=== PATIENT | male | born 1995 | race Caucasian/White ===

== ENCOUNTER 2018-03-22 01:34 | Observation (INO) | payer OTHER ==
[~2018-03-22] VITALS: Ht 182.9 cm; Wt 77.1 kg
[2018-03-22] MEDS ORDERED: LORAZEPAM 2 MG/ML 1 ML VIAL IM STA ×2 (01:38→02:54)
[2018-03-22] MEDS ORDERED: HALOPERIDOL LACTATE 5 MG/ML 1 ML VIAL IM STA (01:38)
--- NOTE | 2018-03-22 01:46 | EMERGENCY ROOM VISIT NOTE ---
History Report prepared by Emmanuel: Kim Mckenzie Under the Supervision of: Dr. Adonis Espinal M.D. First contact with patient: 01:34 Chief Complaint: ALCOHOL OVERDOSE Stated Complaint: ALCOHOL OVERDOSE History of Present Illness The patient is a 23 year old male who presents to the Emergency Room with complaints of an episode of alcohol overdose occurring prior to arrival. Per EMS , the patient was at [facility] and he was yelling at staff. They state that police were called and upon arrival he tried to fight them. EMS reports that when they arrived he was handcuffed and had blown a 260. HPI and ROS limited secondary to alcohol intoxication. Source of History: EMS History Limited By: intoxication Onset: prior to arrival Position: other (global) Quality: other (alcohol overdose) Timing: other (episode) Review of Systems HPI and ROS limited secondary to alcohol intoxication. Past Medical & Surgical Medical Problems: (1) No active medical problems Family History No pertinent family history Social History Alcohol Use: heavy Marital Status: single Housing Status: lives with roommate Occupation Status: [employer] student Current/Historical Medications No Active Prescriptions or Reported Meds Allergies Coded Allergies: Penicillins (Verified Allergy, Unknown, HIVES, 03/22/18) Physical Exam Vital Signs Date Time Temp Pulse Resp B/P (MAP) Pulse Ox O2 Delivery O2 Flow Rate FiO2 03/22/18 05:30 94/69 03/22/18 05:00 106/75 03/22/18 04:54 124 15 94 03/22/18 04:30 113/94 03/22/18 04:24 134 19 113/79 96 03/22/18 03:54 109 15 97 03/22/18 03:30 91/55 03/22/18 03:24 103 17 97 Nasal Cannula 3.0 03/22/18 03:22 101/59 03/22/18 03:17 101 18 101/59 96 Nasal Cannula 3.0 03/22/18 03:00 157/140 03/22/18 02:54 107 17 97 03/22/18 02:49 97 17 97 Nasal Cannula 3.0 03/22/18 02:34 118 18 94 Nasal Cannula 3.0 03/22/18 02:30 156/92 95 Nasal Cannula 3.0 03/22/18 02:20 94 Nasal Cannula 3.0 03/22/18 02:19 144 19 82 Room Air 03/22/18 02:04 127 19 91 Room Air 03/22/18 02:01 128 03/22/18 02:00 120/80 Room Air 03/22/18 01:57 174 03/22/18 01:47 151/124 03/22/18 01:35 37.1 170 20 151/124 96 Room Air Physical Exam GENERAL: Patient is heavily intoxicated. Smells of alcohol. Combative. Aggressive. Being held down by multiple security officers. Well appearing and in no acute distress. HEAD: No evidence of Trauma. AT/NC EYES: Injected conjunctiva. Normal EOM. Pupils equal/reactive. ENT: Mucous membranes moist, no nasal congestion. NECK: No step-offs, no adenopathy, no meningismus, trachea is midline. LUNGS: No dyspnea. Clear to auscultation and equal bilaterally. No wheeze, no rhonchi. HEART: Regular rate and rhythm. No murmurs, rubs, gallops appreciated. GI: Abdomen soft, nontender, no peritonitis. Bowel sounds positive. No masses appreciated. BACK: No midline tenderness, no stepoffs, no CVA tenderness EXTREMITIES: Normal motion all extremities, no cyanosis, no edema. NEUROLOGIC: Heavily intoxicated. Slurred speech. Aggressive. No acute motor or sensory deficits, no focal weakness, cranial nerves grossly intact. SKIN: No rash, no jaundice, no diaphoresis. Abrasion over the right fist without bruising. Medical Decision & Procedures ER Provider Diagnostic Interpretation: X ray results are stated below per my interpretation: Chest #1: Indication Hypoxia: 1 view: No infiltrate, no effusion, normal cardiac border. Mildly hypoinflated lungs. Chest #2: Indication Continued hypoxia, crackles lungs: 1 view: Interval development of haziness throughout right lung eldridge compared to CXR from 2 hours earlier Stat Rad Radiology results and stated below per my review and radiologist interpretation: CT HEAD: Motion artifact causes image degradation. No intracranial hemorrhage, extra- axial fluid, shift or mass effect. No evidence for cortical infarct. No evidence for displaced skull fracture. Paranasal sinuses and mastoid air cells unremarkable. Radiologist: Pavan Contreras MD Laboratory Results 03/22/18 02:00 Red Blood Count 5.48, Mean Corpuscular Volume 87.8, Mean Corpuscular Hemoglobin 30.5, Mean Corpuscular Hemoglobin Concent 34.7, Mean Platelet Volume 9.3, Neutrophils (%) (Auto) 54.2, Lymphocytes (%) (Auto) 39.7, Monocytes (%) (Auto) 4.6, Eosinophils (%) (Auto) 0.4, Basophils (%) (Auto) 0.7, Neutrophils # (Auto) 6.54, Lymphocytes # (Auto) 4.80, Monocytes # (Auto) 0.56, Eosinophils # (Auto) 0.05, Basophils # (Auto) 0.09 03/22/18 01:45 Test 03/22/18 01:45 03/22/18 02:00 03/22/18 02:23 Anion Gap 13.0 mmol/L (3-11) Estimated GFR () 114.4 Estimated GFR (Non- 98.7 BUN/Creatinine Ratio 9.7 (10-20) Calcium Level 8.3 mg/dl (8.5-10.1) Total Bilirubin 0.3 mg/dl (0.2-1) Direct Bilirubin mg/dl (0-0.2) Aspartate Amino Transf (AST/SGOT) 35 U/L (15-37) Alanine Aminotransferase (ALT/SGPT) 31 U/L (12-78) Alkaline Phosphatase 86 U/L (45-117) Total Creatine Kinase 335 U/L (39-308) Troponin I < 0.015 ng/ml (0-0.045) Total Protein 8.2 gm/dl (6.4-8.2) Albumin 4.1 gm/dl (3.4-5.0) Ethyl Alcohol mg/dL 368.0 mg/dl (0-3) White Blood Count 12.09 K/uL (4.8-10.8) Red Blood Count 5.48 M/uL (4.7-6.1) Hemoglobin 16.7 g/dL (14.0-18.0) Hematocrit 48.1 % (42-52) Mean Corpuscular Volume 87.8 fL (80-100) Mean Corpuscular Hemoglobin 30.5 pg (25-34) Mean Corpuscular Hemoglobin Concent 34.7 g/dl (32-36) Platelet Count 428 K/uL (130-400) Mean Platelet Volume 9.3 fL (7.4-10.4) Neutrophils (%) (Auto) 54.2 % Lymphocytes (%) (Auto) 39.7 % Monocytes (%) (Auto) 4.6 % Eosinophils (%) (Auto) 0.4 % Basophils (%) (Auto) 0.7 % Neutrophils # (Auto) 6.54 K/uL (1.4-6.5) Lymphocytes # (Auto) 4.80 K/uL (1.2-3.4) Monocytes # (Auto) 0.56 K/uL (0.11-0.59) Eosinophils # (Auto) 0.05 K/uL (0-0.5) Basophils # (Auto) 0.09 K/uL (0-0.2) RDW Standard Deviation 40.6 fL (36.4-46.3) RDW Coefficient of Variation 12.7 % (11.5-14.5) Immature Granulocyte % (Auto) 0.4 % Immature Granulocyte # (Auto) 0.05 K/uL (0.00-0.02) Urine Color YELLOW Urine Appearance CLEAR (CLEAR) Urine pH 6.0 (4.5-7.5) Urine Specific [place] 1.010 (1.000-1.030) Urine Protein NEG (NEG) Urine Glucose (UA) NEG (NEG) Urine Ketones NEG (NEG) Urine Occult Blood TRACE (NEG) Urine Nitrite NEG (NEG) Urine Bilirubin NEG (NEG) Urine Urobilinogen NEG (NEG) Urine Leukocyte Esterase NEG (NEG) Urine WBC (Auto) 0 /hpf (0-5) Urine RBC (Auto) 0-4 /hpf (0-4) Urine Hyaline Casts (Auto) 0 /lpf (0-5) Urine Epithelial Cells (Auto) 0-5 /lpf (0-5) Urine Bacteria (Auto) NEG (NEG) Urine Opiates Screen NEG (NEG) Urine Methadone, Qualitative NEG (NEG) Urine Barbiturates NEG (NEG) Urine Phencyclidine (PCP) Level NEG (NEG) Ur Amphetamine/Methamphetamine NEG (NEG) MDMA (Ecstasy) Screen NEG (NEG) Urine Benzodiazepines Screen NEG (NEG) Urine Cocaine Metabolite NEG (NEG) Urine Marijuana (THC) POS (NEG) Laboratory results as reviewed by me. Medications Administered Medications (Trade) Dose Ordered Sig/Criss Route Start Time Stop Time Status Last Admin Dose Admin Haloperidol Lactate (Haldol Inj) 5 mg NOW STAT IM 03/22/18 01:38 5/9/18 01:40 DC 03/22/18 01:38 5 MG Lorazepam (Ativan Inj) 2 mg NOW STAT IM 03/22/18 01:38 03/22/18 01:40 DC 03/22/18 01:38 2 MG Sodium Chloride 2,000 ml @ 999 mls/hr Q2H1M STAT IV 03/22/18 01:54 03/22/18 03:54 DC 03/22/18 01:54 999 MLS/HR Miscellaneous Information (Nursing Verbal Med Order) 1 ea ONE ONCE N/A 03/22/18 01:50 03/22/18 02:55 DC 03/22/18 01:50 1 EA Diphenhydramine HCl (Benadryl Inj) 50 mg STK-MED ONCE .ROUTE 03/22/18 04:42 03/22/18 04:43 DC 03/22/18 04:44 50 MG Lorazepam (Ativan Inj) 2 mg NOW STAT IV 03/22/18 05:07 03/22/18 05:09 DC 03/22/18 04:46 2 MG ECG Per My Interpretation Indication: toxicologic Rate (beats per minute): 127 Rhythm: sinus tachycardia Findings: RBBB, ST depression (nonspecific), no ectopy ED Course 0134: The patient was evaluated in room B12B. A complete history and physical exam was performed. 0138: Ordered Ativan Inj 2 mg IM, Haldol Inj 5 mg IM. 0145: I reevaluated the patient. He is mumbling about taking drugs, but will not say what. He received a total of 10 Haldol and 4 Ativan. Again he is violently fighting restraints with a heart rate of 170. I request nurses place an IV, start fluids, and obtain further labs. 0154: Ordered NSS 2000 ml @ 999 mls/hr IV, Ativan Inj 2 mg IV. 0157: I reevaluated the patient and he is no calming down. Nursing is obtaining an EKG. 0254: Ordered Ativan Inj 2 mg IM. 0404: I reevaluated the patient and he is sound asleep. 0436: Nursing reports that he seemed toe be more tachypneic, tachycardic, and uncomfortable. On evaluation, patient urinated all over himself and now is no loner in any distress. Mild crackles on lung exam so repeat chest x-ray ordered. 0440: I reevaluated the patient and he is now having full tremors and twitching of all muscles. He appears to be shaking violently. Ativan and Benadryl ordered. 0442: Ordered Benadryl Inj 50 mg IV. 0507: Ordered Ativan Inj 2 mg IV. 0507: I reevaluated the patient and he is sleeping. He is no longer tachycardic. 0604: Discussed the patient's case with Dr. Garza [facility] Hospitalist. The patient will be evaluated for further treatment and disposition. Medical Decision Differential: Alcohol Intoxication, Drug Intoxication, Electrolyte Abnormality, Trauma, Intracranial Event, Toxicological, Excited Delirium, Serotonin Syndrome , amongst other pathologies entertained. 22 yr old intoxicated male brought in by EMS after being belligerent at local restaurant. Patient with no evidence nor history for trauma. He arrives severely belligerent and aggressive to staff and myself. I was unable to verbally deescalate nor re-direct the patient. The patient's combative behavior was risking a catastrophe. To protect the staff and the patient from harm it was necessary to chemically and physically restrain the patient. This required repeat dosing of haldol and ativan. An EKG done revealed no prolonged qtc and did have tachycardia. EtOH positive. Given IV fluids as mild CK elevation on arrival and after how aggressive he had been I felt fluids would be necessary. Moderate hypoxia likely sedation related thus requiring NC O2. CXR done given hypoxia which initially was mostly just hypoinflated. Monitored and had episode increased agitation again which resolved after he urinated, however shortly thereafter become very agitated with arching of back and twisting of head to the side. Very much looked to be dystonic related but given increased HR, agitation I felt that imaging would be required. Given Benadryl and Ativan with resolution of symptoms. This did not appear to be seizure like. He was not hypoxic with this. HR was quite elevated during it. He looks well after this and is sleeping soundly. CT head appears negative other than some movement. He did have a repeat CXR done prior to CT Head which reveals some increased congestion throughout right lung which I suspect is aspiration, though i would note he was not vomiting while here. Given significant Etoh level, haziness right lung on cxr, requirement of multiple sedative medications and his persistent hypoxia requiring NC O2, I felt that he will benefit from hospitalist management/monitoring. I did not feel that patient requiring intubate as by exam on multiple occasions he is maintaining airways and does not appear to be aspirating nor vomiting. Head Trauma GCS Score: 9 Medication Reconcilliation Current Medication List: was personally reviewed by me Blood Pressure Screening Patient's blood pressure: Normal blood pressure Will be further monitored by the hospitalist. Consults Time Called: 05 Consulting Physician: Dr. Greg KC Hospitalist Returned Call: 06 Discussed the patient's case with Dr. Greg KC Hospitalist. The patient will be evaluated for further treatment and disposition. Impression Primary Impression: Alcohol abuse Additional Impressions: Combative behavior Alcohol intoxication Aspiration into respiratory tract Dystonic drug reaction Critical Care I have personally spent greater than 45 minutes of critical care time in the direct management of this patient. This was a life/limb threatening event. This includes time spent evaluating patient, direct bedside care, chart review, placing orders, interpretation of diagnostic studies, discussion with consultants, patient, and family members, as well as other required patient management activities. This 45 minutes is in excess of all separately billable procedures. Scribe Attestation The scribe's documentation has been prepared under my direction and personally reviewed by me in its entirety. I confirm that the note above accurately reflects all work, treatment, procedures, and medical decision making performed by me. Departure Information Dispostion Being Evaluated By Hospitalist Prescriptions No Active Prescriptions or Reported Meds Patient Instructions My [facility] Problem Qualifiers
[2018-03-22] MEDS ORDERED: NURSING VERBAL MED ORDER ONE ×2 (01:50→05:15)
[2018-03-22] MEDS ORDERED: SODIUM CHLORIDE 0.9% 1000ML 2,000 ML IV STA (01:54)
[2018-03-22] MEDS ORDERED: LORAZEPAM 2 MG/ML 1 ML VIAL IV STA ×2 (01:54→05:07)
[2018-03-22 02:08] LABS: BASO % 0.7 %; BASO ABS # 0.09 K/uL (0-0.2); EOS % 0.4 %; EOS ABS # 0.05 K/uL (0-0.5); HEMATOCRIT 48.1 % (42-52); HEMOGLOBIN 16.7 g/dL (14.0-18.0); IG# 0.05 K/uL (0.00-0.02); LYMPH % 39.7 %; MEAN CELL VOLUME 87.8 fL (80-100); MEAN CORPUSCULAR HEMOGLOBIN 30.5 pg (25-34); MEAN CORPUSCULAR HGB CONC 34.7 g/dl (32-36); MEAN PLATELET VOLUME 9.3 fL (7.4-10.4); MONO % 4.6 %; MONO ABS # 0.56 K/uL (0.11-0.59); NEUT % 54.2 %; NEUT ABS # 6.54 K/uL (1.4-6.5); PLATELET COUNT 428 K/uL (130-400); RED CELL DISTRIBUTION WIDTH CV 12.7 % (11.5-14.5); RED CELL DISTRIBUTION WIDTH SD 40.6 fL (36.4-46.3); WHITE BLOOD COUNT 12.09 K/uL (4.8-10.8)
[2018-03-22 02:25] LABS: ALBUMIN 4.1 gm/dl (3.4-5.0); ALKALINE PHOSPHATASE 86 U/L (45-117); ALT/SGPT 31 U/L (12-78); BLOOD UREA NITROGEN 10 mg/dl (7-18); CALCIUM 8.3 mg/dl (8.5-10.1); CARBON DIOXIDE 26 mmol/L (21-32); CREATININE 1.07 mg/dl (0.60-1.40); GLUCOSE 102 mg/dl (70-99); TOTAL PROTEIN 8.2 gm/dl (6.4-8.2)
[2018-03-22 02:47] LABS: POTASSIUM 3.4 mmol/L (3.5-5.1); SODIUM 146 mmol/L (136-145)
[2018-03-22 02:50] LABS: AST/SGOT 35 U/L (15-37)
[2018-03-22] MEDS: DiphenhydrAMINE HCL 50 MG/ML VIAL ONE ×2 (04:42→04:44)
[2018-03-22] MEDS ORDERED: ACETAMINOPHEN 325 MG TAB PO PRN (06:30)
[2018-03-22] MEDS ORDERED: LORAZEPAM 2 MG/ML 1 ML VIAL IV PRN (06:30)
[2018-03-22] MEDS ORDERED: ONDANSETRON INJ 2 MG/ML 2 ML VIAL IV PRN (06:30)
--- NOTE | 2018-03-22 06:35 | DIAGNOSTIC IMAGING REPORT ---
CHEST ONE VIEW PORTABLE CLINICAL HISTORY: severely combative, etoh, hypoxia COMPARISON STUDY: No previous studies for comparison. FINDINGS: The bones soft tissues and hemidiaphragms are normal. The cardiomediastinal silhouette is normal. The lungs are clear. The pulmonary vasculature is normal. IMPRESSION: Negative chest. The above report was generated using voice recognition software. It may contain grammatical, syntax or spelling errors. Electronically signed by: Eliot Ren M.D. 03/22/2018 6:34 AM Dictated Date/Time: 03/22/2018 6:30 AM
--- NOTE | 2018-03-22 06:37 | DIAGNOSTIC IMAGING REPORT ---
CHEST ONE VIEW PORTABLE CLINICAL HISTORY: worsening SHOB dyspnea COMPARISON STUDY: 03/22/2000 18-20 8:00 AM. FINDINGS: Somewhat progressive increase in density over the right upper lung. Overlap artifact versus upper lobe atelectatic change is considered. Lungs otherwise are clear. Diaphragms are smooth. IMPRESSION: Increased density overlying the right upper lung suggesting either artifact due to overlying soft tissue versus developing upper lobe atelectatic/infiltrative change. The above report was generated using voice recognition software. It may contain grammatical, syntax or spelling errors. Electronically signed by: Eliot Ren M.D. 03/22/2018 6:36 AM Dictated Date/Time: 03/22/2018 6:35 AM
--- NOTE | 2018-03-22 06:41 | DIAGNOSTIC IMAGING REPORT ---
HEAD WITHOUT CONTRAST (CT) CT DOSE: 1247.19 mGy.cm HISTORY: Mental status change AMS, seizure like activity TECHNIQUE: Multiaxial CT images of the head were performed without the use of intravenous contrast. A dose lowering technique was utilized adhering to the principles of ALARA. Comparison: None. Findings: The paranasal sinuses and mastoid air cells are clear. The calvarium and skull base are intact. The ventricles and sulci are within normal limits. There is no mass, hematoma, midline shift, or acute infarct. Impression: No acute intracranial abnormality. The above report was generated using voice recognition software. It may contain grammatical, syntax or spelling errors. Electronically signed by: Eliot Ren M.D. 03/22/2018 6:40 AM Dictated Date/Time: 03/22/2018 6:39 AM
[2018-03-22] MEDS ORDERED: IV FLUIDS COMPLETED PRN (06:45)
--- NOTE | 2018-03-22 06:48 | History and Physical ---
History & Physical Date & Time of Service: March 22, 2018 at 06:33 Chief Complaint: Alcohol Overdose Primary Care Physician: No Doctor, Assigned History of Present Illness Patient is a 22yo C male brought in for EtOH intoxication and belligerance. He was at [facility] and was visibly intoxicted and yelling at the staff. While in ER he was found to be acutely agitated. He was administered Ativan 2mg x 4 doses and Haldol 5mg x 2 doses which was adequate sedation. Patient had an brief episode of muscle rigidity and spasm that resolved with IV Benadryl. Concern for aspiration event as patient became visibly more SOB with decrease in O2 saturation. CT head performed which was negative. Repeat CXR performed which revealed increased markings on the right side when compared to prior, concern for aspiration event. Patient somnolent and unresponsive during encounter. Patient did not follow commands or provide verbal answers. ER Course: Ativan 2mg x 4 doses, Haldol 5mg x 2 doses, NSS x 2 liters, Benadryl 50mg IV Past Medical/Surgical History Medical Problems: No active medical problems Past Surgical: Unable to obtain due to patient mental state No evidence of prior surgeries, no scarring Family History No pertinent family history Social History Unable to obtain due to patient mental status Smoking Status: Unknown if Ever Smoked Marital Status: single Occupational Status: [employer] student Allergies Coded Allergies: Penicillins (Verified Allergy, Unknown, HIVES, 03/22/18) Home Medications No Active Prescriptions or Reported Meds Review of Systems Unable to obtain Physical Exam Vital Signs Date Time Temp Pulse Resp B/P (MAP) Pulse Ox O2 Delivery O2 Flow Rate FiO2 03/22/18 06:17 103 03/22/18 06:05 101 17 93 03/22/18 06:04 98/50 03/22/18 05:35 102 18 98 03/22/18 05:30 94/69 03/22/18 05:00 106/75 03/22/18 04:54 124 15 94 03/22/18 04:30 113/94 03/22/18 04:24 134 19 113/79 96 03/22/18 03:54 109 15 97 03/22/18 03:30 91/55 03/22/18 03:24 103 17 97 Nasal Cannula 3.0 03/22/18 03:22 101/59 03/22/18 03:17 101 18 101/59 96 Nasal Cannula 3.0 03/22/18 03:00 157/140 03/22/18 02:54 107 17 97 03/22/18 02:49 97 17 97 Nasal Cannula 3.0 03/22/18 02:34 118 18 94 Nasal Cannula 3.0 03/22/18 02:30 156/92 95 Nasal Cannula 3.0 03/22/18 02:20 94 Nasal Cannula 3.0 03/22/18 02:19 144 19 82 Room Air 03/22/18 02:04 127 19 91 Room Air 03/22/18 02:01 128 03/22/18 02:00 120/80 Room Air 03/22/18 01:57 174 03/22/18 01:47 151/124 03/22/18 01:35 37.1 170 20 151/124 96 Room Air General: sedated, nontoxic in appearance, resting comfortably on left side, NAD Skin: warm, dry, intact, no rashes or lesions HEENT: NC/AT, pupils small and reactive, anicteric sclera, MMM, dentition intact, neck supple, trachea midline Heart: +S1/S2, regular, no m/r/g Lungs: equal air entry bilaterally, mild crackles on right base with end- inspiration, poor effort, no rhonchi/wheezing, no respiratory distress, adequate SaO2 on 2L NC Abdomen: soft, NT/ND, no masses Extremities: warm, well perfused, no clubbing/cyanosis or edema, palpable pulses Neuro: patient sedated, pupils small, round and reactive bilaterally, normal muscle bulk and tone with no spasm/rigidity, patient moving 4 extremities with 5 + strength prior to medication administration, no neuro deficits Diagnostics Laboratory Results Results Past 24 Hours Test 03/22/18 01:45 03/22/18 02:00 03/22/18 02:23 Range/Units Sodium Level 146 136-145 mmol/L Potassium Level 3.4 3.5-5.1 mmol/L Chloride Level 107 98-107 mmol/L Carbon Dioxide Level 26 21-32 mmol/L Anion Gap 13.0 3-11 mmol/L Blood Urea Nitrogen 10 7-18 mg/dl Creatinine 1.07 0.60-1.40 mg/dl Estimated GFR () 114.4 Estimated GFR (Non- 98.7 BUN/Creatinine Ratio 9.7 10-20 Random Glucose 102 70-99 mg/dl Calcium Level 8.3 8.5-10.1 mg/dl Total Bilirubin 0.3 0.2-1 mg/dl Direct Bilirubin 0-0.2 mg/dl Aspartate Amino Transf (AST/SGOT) 35 15-37 U/L Alanine Aminotransferase (ALT/SGPT) 31 12-78 U/L Alkaline Phosphatase 86 45-117 U/L Total Creatine Kinase 335 39-308 U/L Troponin I < 0.015 0-0.045 ng/ml Total Protein 8.2 6.4-8.2 gm/dl Albumin 4.1 3.4-5.0 gm/dl Ethyl Alcohol mg/dL 368.0 0-3 mg/dl White Blood Count 12.09 4.8-10.8 K/uL Red Blood Count 5.48 4.7-6.1 M/uL Hemoglobin 16.7 14.0-18.0 g/dL Hematocrit 48.1 42-52 % Mean Corpuscular Volume 87.8 80-100 fL Mean Corpuscular Hemoglobin 30.5 25-34 pg Mean Corpuscular Hemoglobin Concent 34.7 32-36 g/dl Platelet Count 428 130-400 K/uL Mean Platelet Volume 9.3 7.4-10.4 fL Neutrophils (%) (Auto) 54.2 % Lymphocytes (%) (Auto) 39.7 % Monocytes (%) (Auto) 4.6 % Eosinophils (%) (Auto) 0.4 % Basophils (%) (Auto) 0.7 % Neutrophils # (Auto) 6.54 1.4-6.5 K/uL Lymphocytes # (Auto) 4.80 1.2-3.4 K/uL Monocytes # (Auto) 0.56 0.11-0.59 K/uL Eosinophils # (Auto) 0.05 0-0.5 K/uL Basophils # (Auto) 0.09 0-0.2 K/uL RDW Standard Deviation 40.6 36.4-46.3 fL RDW Coefficient of Variation 12.7 11.5-14.5 % Immature Granulocyte % (Auto) 0.4 % Immature Granulocyte # (Auto) 0.05 0.00-0.02 K/uL Urine Color YELLOW Urine Appearance CLEAR CLEAR Urine pH 6.0 4.5-7.5 Urine Specific [place] 1.010 1.000-1.030 Urine Protein NEG NEG Urine Glucose (UA) NEG NEG Urine Ketones NEG NEG Urine Occult Blood TRACE NEG Urine Nitrite NEG NEG Urine Bilirubin NEG NEG Urine Urobilinogen NEG NEG Urine Leukocyte Esterase NEG NEG Urine WBC (Auto) 0 0-5 /hpf Urine RBC (Auto) 0-4 0-4 /hpf Urine Hyaline Casts (Auto) 0 0-5 /lpf Urine Epithelial Cells (Auto) 0-5 0-5 /lpf Urine Bacteria (Auto) NEG NEG Urine Opiates Screen NEG NEG Urine Methadone, Qualitative NEG NEG Urine Barbiturates NEG NEG Urine Phencyclidine (PCP) Level NEG NEG Ur Amphetamine/Methamphetamine NEG NEG MDMA (Ecstasy) Screen NEG NEG Urine Benzodiazepines Screen NEG NEG Urine Cocaine Metabolite NEG NEG Urine Marijuana (THC) POS NEG Diagnostic Radiology Awaiting formal reads. CT Head - appears negative for acute intracranial process CXR - initial CXR appears normal, repeat CXR with mildly increased interstitial markings on the right side Impression Assessment and Plan 22yo C male with EtOH intoxication, possible aspiration event 1. EtOH intoxication -patient well sedated at present after receiving Ativan and Haldol in ER. He is breathing on his own, protecting his airway, no respiratory depression -Continue to monitor -NSS = 40mEq KCL at 100mL/hr -Zofran PRN nausea -Ativan PRN agitation -Seizure precautions -Aspiration precautions -Place patient near nurses' station - may need 1:1 -Check Tylenol level -Monitor for additional seizure like activity vs dystonic reaction. IV Benadryl if needed -Check EKG to assess underlying rhythm and QT interval 2. Possible aspiration event - patient presently with adequate oxygenation on room air, no respiratory distress -Continuous pulse oximetry -Aspiration precautions -NPO until mental status improves -Will hold antibiotics for now - consider Zosyn if patient becomes febrile or clinically worsens 3. Gapped metabolic acidosis - Anion gap=13. Etiology unclear. Most likely secondary to intoxication -Check lactate -Check VBG -Repeat BMP at 1500 4. Leukocytosis - most likely reactive. No evidence of underlying infection. -Repeat CBC at 1500 -If patient had a true aspiration event may see further elevation in WBC on repeat due to pneumonitis 5. F/E/N - NSS +KCL 40mEQ x 1 liter, K=3.4, will replete and repeat labs at 1500, check Mg and PO4 x 1 and replete as needed, NPO 6. Ppx - early ambulation and IVF 7. Code - Full 8. Dispo - Observation Med-telemetry Resuscitation Status Full VTE Prophylaxis Will order VTE Prophylaxis: No Reason for no VTE drug order: Treatment not indicated Reason no Mechanical VTE Order: Treatment not indicated
[2018-03-22 08:10] VITALS: BP 121/68; PULSE 87; TEMP 36.2; O2SAT 98; Ht 182.9 cm; Wt 77.1 kg
[2018-03-22] MEDS ORDERED: POTASSIUM CHLORIDE INJ 40 MEQ in SODIUM CHLORIDE 0.9% 1000ML 1,000 ML IV SCH (08:30)
[2018-03-22 11:45] VITALS: BP 132/76; PULSE 89; TEMP 36.4; O2SAT 100
[2018-03-22 12:00] VITALS: O2SAT 100
[2018-03-22 13:02] LABS: HEMATOCRIT 41.6 % (42-52); HEMOGLOBIN 14.5 g/dL (14.0-18.0); MEAN CELL VOLUME 86.7 fL (80-100); MEAN CORPUSCULAR HEMOGLOBIN 30.2 pg (25-34); MEAN CORPUSCULAR HGB CONC 34.9 g/dl (32-36); MEAN PLATELET VOLUME 9.3 fL (7.4-10.4); PLATELET COUNT 311 K/uL (130-400); RED CELL DISTRIBUTION WIDTH CV 12.9 % (11.5-14.5); RED CELL DISTRIBUTION WIDTH SD 41.3 fL (36.4-46.3); WHITE BLOOD COUNT 9.37 K/uL (4.8-10.8)
[2018-03-22 13:49] LABS: CALCIUM 8.2 mg/dl (8.5-10.1); CREATININE 0.8 mg/dl (0.60-1.40); POTASSIUM 3.9 mmol/L (3.5-5.1)
--- NOTE | 2018-03-22 15:22 | Discharge Instructions ---
Discharge Instructions Date of Service March 22, 2018. Admission Reason for Admission: Aspiration Into Respiratry Tract Discharge Discharge Diagnosis / Problem: Alcohol overdose, aspiration Discharge Goals Goal(s): Improve disease control Activity Recommendations Activity Limitations: resume your previous activity . Instructions / Follow-Up Instructions / Follow-Up If you become feverish, or develop aches and chills or a cough, please see your doctor immediately. You are at risk for developing pneumonia because you likely aspirated some stomach contents earlier in your admission. I strongly encourage you to re-examine your relationship with alcohol. Regularly binge drinking is dangerous and can have a serious effect on your health. Please discuss with your primary care provider and if you feel that you are unable to cut back on drinking, please look into support services such as Alcoholics Anonymous. Do not drive today. Current Hospital Diet Patient's current hospital diet: Regular Diet Discharge Diet Recommended Diet: Regular Diet Procedures Procedures Performed: Head CT Chest Xray Pending Studies Studies pending at discharge: no Medical Emergencies . Who to Call and When: Medical Emergencies: If at any time you feel your situation is an emergency, please call 911 immediately. . Non-Emergent Contact Non-Emergency issues call your: Primary Care Provider Call Non-Emergent contact if: you have a fever, you have any medication questions . . "Provider Documentation" section prepared by Karly Kilpatrick. .
[2018-03-22 15:37] VITALS: BP 120/69; PULSE 85; TEMP 37; O2SAT 98
--- NOTE | 2018-03-22 15:41 | Discharge Summary ---
Discharge Summary Date of Service March 22, 2018. Discharge Summary Admission Date: March 22, 2018 at 06:32 Discharge Date: March 22, 2018 Discharge Disposition: Home Principal Diagnosis: Alcohol overdose, aspiration pneumonitis,Acute hypoxic respiratory failure Problems/Secondary Diagnoses: Hypokalemia Leukocytosis Hypernatremia Toxic encephalopathy Procedures: HEAD WITHOUT CONTRAST (CT) CT DOSE: 1247.19 mGy.cm HISTORY: Mental status change AMS, seizure like activity TECHNIQUE: Multiaxial CT images of the head were performed without the use of intravenous contrast. A dose lowering technique was utilized adhering to the principles of ALARA. Comparison: None. Findings: The paranasal sinuses and mastoid air cells are clear. The calvarium and skull base are intact. The ventricles and sulci are within normal limits. There is no mass, hematoma, midline shift, or acute infarct. Impression: No acute intracranial abnormality. Electronically signed by: Eliot Ren M.D. 03/22/2018 6:40 AM CHEST ONE VIEW PORTABLE CLINICAL HISTORY: worsening SHOB dyspnea COMPARISON STUDY: 03/22/2000 18-20 8:00 AM. FINDINGS: Somewhat progressive increase in density over the right upper lung. Overlap artifact versus upper lobe atelectatic change is considered. Lungs otherwise are clear. Diaphragms are smooth. IMPRESSION: Increased density overlying the right upper lung suggesting either artifact due to overlying soft tissue versus developing upper lobe atelectatic/infiltrative change. Electronically signed by: Eliot Ren M.D. 03/22/2018 6:36 AM CHEST ONE VIEW PORTABLE CLINICAL HISTORY: severely combative, etoh, hypoxia COMPARISON STUDY: No previous studies for comparison. FINDINGS: The bones soft tissues and hemidiaphragms are normal. The cardiomediastinal silhouette is normal. The lungs are clear. The pulmonary vasculature is normal. IMPRESSION: Negative chest. Electronically signed by: Eliot Ren M.D. 03/22/2018 6:34 AM Consultations: None Medication Reconciliation Medication Profile: No Active Prescriptions or Reported Meds Discharge Exam ROS Constitutional: no chills, aches, sweats or fever Respiratory: no sob,cough, sputum, or wheezing Cardiac: no chest pain, palpitations, edema, orthopnea or lightheadedness GI: no abdominal pain, nausea, vomiting, diarrhea or constipation : no dysuria or hesitancy Extremities: no joint pain or weakness Skin: no rash All other systems reviewed and negative General: no distress Eyes: normal inspection, PERLL Respiratory: chest non tender, clear to auscultation, normal breath sounds, no respiratory distress, no accessory muscle use Cardiac: regular rate and rhythm, no rub or gallop, no murmur, no edema, no jvd GI/: active bowel sounds, no abd pain or tenderness, soft, non distended Extremities: normal range of motion, normal strength, non tender Neuro/Psych: alert and oriented x 3, normal mood and affect Skin: normal color, dry Hospital Course Patient is a 22yo C male brought in for EtOH intoxication and acute hypoxic respiratory failure. He was at [facility] and was visibly intoxicated and yelling at the staff. While in ER he was found to be acutely agitated. He was administered Ativan 2mg x 4 doses and Haldol 5mg x 2 doses which was adequate sedation. Patient had an brief episode of muscle rigidity and spasm that resolved with IV Benadryl. Concern for aspiration event as patient became visibly more SOB with decrease in O2 saturation. CT head performed which was negative. Repeat CXR performed which revealed increased markings on the right side when compared to prior, concern for aspiration event. Patient somnolent and unresponsive during encounter. Patient did not follow commands or provide verbal answers. 22yo C male with EtOH intoxication, probable aspiration event. He did admit to vomiting prior to coming to the hospital EtOH intoxication/Toxic encephalopathy - - placed on telemetry floor and had sinus tachycardia on the monitor - Given NSS + 40mEq KCL at 100mL/hr -Given Zofran PRN nausea, Ativan PRN agitation -Placed on Seizure precautions, Aspiration precautions - Tylenol level wnl -EKG NSR this afternoon, previously with right axis deviation - counseled on alcohol dependence and binge drinking - encouraged to seek help if he feels he cannot quit drinking Aspiration pneumonitis/Acute hypoxic respiratory failure-CXR with RUL infiltrate. No fevers, leukocytosis from admission actually resolved on repeat labs. - patient presently with adequate oxygenation on room air, no respiratory distress, and weaned off O2 to room air once he was awake and alert. -Will hold antibiotics for now - counseled patient on s/s of developing pna Anion gap metabolic acidosis - Anion gap=13. Etiology unclear. Most likely secondary to intoxication - resolved - VBG pH 7.3 on admission -Repeat BMP wnl Leukocytosis - most likely reactive. No evidence of underlying infection. -Repeat CBC - leukocytosis resolved Hypokalemia/Hypernatremia-all from dehydration on admission-resolved on repeat labs after IVF hydration Stable for discharge to home Total Time Spent: Greater than 30 minutes This includes examination of the patient, discharge planning, medication reconciliation, and communication with other providers. Discharge Instructions Please refer to the electronic Patient Visit Report (Discharge Instructions) for additional information. Follow-Up With PCP within 1 week Reviewed: Pt Seen/Exam by Me History APPLICATION DESIGNER Supervision Note: I interviewed and examined the patient. Discussed with NEVIN Kilpatrick and agree with findings and plan as documented in the note. Any exceptions or clarifications are listed here: Pt doing well when I saw him, only complaint was hoarse voice. Denies daily EtOH drinking, only binging twice weekly. No h/o seizures. No previous health problems otherwise. Vitals and tele reviewed NAD, AAOx3 RRR no mgr CTAB no wcr, breahting unlabored Abd +BS soft NT ND Ext no edema, no calf tenderness Skin no bruises or rashes, warm and dry Neuro CN 2-12 intact, full strenght throughout Aspiration Pneumonitis, no need for antibiotics at this time, no fevers Electrolyte abnormalities resolved, no ECG abnormalities that are significant Counseled on not binge drinking Acute hypoxic respiratory failure resolved Documented By: Sari Clark
[2018-03-22 15:58] VITALS: BP 120/69; PULSE 85; TEMP 37; O2SAT 98
[2018-03-23] MEDS ORDERED: BENZ-89 PO (15:56)
== END 2018-03-22 16:20 | disposition home or self-care (01) ==
LOC: EDBD 01:34 → C.EDB 01:35 → C.2T 06:32 → EDBEDREQ 06:35 → ENRESERV 06:44
PROVIDERS: ADMIT Internal Medicine; ATTEND Family Medicine
DX: F10.129 Alcohol abuse with intoxication, unspecified (principal); G92 Toxic encephalopathy; J69.0 Pneumonitis due to inhalation of food and vomit; J96.01 Acute respiratory failure with hypoxia; E87.2 Acidosis; D72.829 Elevated white blood cell count, unspecified; T88.7XXA Unspecified adverse effect of drug or medicament, initial encounter; Z88.0 Allergy status to penicillin; E87.6 Hypokalemia; E87.0 Hyperosmolality and hypernatremia

== ENCOUNTER 2018-03-23 13:10 | Emergency (ER) | payer OTHER ==
[~2018-03-23] VITALS: Ht 180.3 cm; Wt 79.3 kg
[2018-03-23 13:16] VITALS: TEMP 36.6; Ht 180.3 cm; Wt 79.3 kg
[2018-03-23] MEDS ORDERED: LORAZEPAM 2 MG/ML 1 ML VIAL IV STA (13:35)
[2018-03-23] MEDS ORDERED: SODIUM CHLORIDE 0.9% 1000ML 2,000 ML IV STA (13:35)
[2018-03-23] MEDS ORDERED: BENZTROPINE MESYLATE 1 MG/ML 2 ML AMP IV STA (13:35)
--- NOTE | 2018-03-23 13:42 | EMERGENCY ROOM VISIT NOTE ---
History Report prepared by Emmanuel: Ramses Warner Under the Supervision of: Dr. Erwin Cabrera M.D. First contact with patient: 13:33 Chief Complaint: NECK PAIN Stated Complaint: SWEATING, SHAKING, WHOLE BODY CRAMPING, DIZZY History of Present Illness The patient is a 22 year old male who presents to the Emergency Room with complaints of constant whole-body shaking that began today. Patient adds that he has constant cramping in his neck. He adds that he has been sweating a lot. Patient is present with his girlfriend. Girlfriend states that the patient began to feel muscle soreness today while they were moving boxes out of her apartment. Patient states that he was seen in the ER two days ago for alcohol intoxication. Girlfriend states that the patient was given sedatives in the ER and was then taken upstairs to be monitored overnight. Patient states that he was discharged from the hospital yesterday. Patient states that he "felt fine when he left". Patient denies sticking his tongue out a lot. Patient states that he is an otherwise healthy ugo. Patient states that he does not drink alcohol everyday. He states that he can go a couple days without alcohol. Patient adds that he uses marijuana sometimes. He states that he has not used marijuana recently. He denies use of cocaine. Source of History: patient Onset: Today Position: other (Whole-body) Timing: constant Modifying Factors (Relieving): other (None) Associated Symptoms: + diaphoresis, + neck pain (Neck cramping) Review of Systems See HPI for pertinent positives and negatives. A total of ten systems were reviewed and were otherwise negative. Past Medical & Surgical Medical Problems: (1) No active medical problems Family History No pertinent family history Social History Smoking Status: Never Smoker Alcohol Use: heavy Marital Status: single Housing Status: lives with roommate Occupation Status: [employer] student Current/Historical Medications Scheduled Benztropine Mesylate (Cogentin), 1 MG PO BID Allergies Coded Allergies: Penicillins (Verified Allergy, Unknown, HIVES, 03/22/18) Physical Exam Vital Signs Date Time Temp Pulse Resp B/P (MAP) Pulse Ox O2 Delivery O2 Flow Rate FiO2 03/23/18 16:18 74 18 142/93 99 03/23/18 15:49 74 18 142/93 99 Room Air 03/23/18 14:25 87 13 137/75 100 Room Air 03/23/18 13:39 54 167/65 99 Room Air 03/23/18 13:20 124 03/23/18 13:16 36.6 146 26 170/106 99 Room Air Physical Exam GENERAL: Awake, fatigued, uncomfortable-appearing, in no distress HENT: Normocephalic, atraumatic. Oropharynx unremarkable other than dry and cracked mucous membranes. EYES: Normal conjunctiva. Sclera non-icteric. No Nystagmus. NECK: Palpable muscle spasm with moderate rigidity. No JVD. RESPIRATORY: Clear to auscultation. CARDIAC: ST. Extremities warm and well perfused. Pulses equal. ABDOMEN: Soft, non-distended. No tenderness to palpation. No rebound or guarding. No masses. RECTAL: Deferred. MUSCULOSKELETAL: Palpable generalized muscle spasms. Chest examination reveals no tenderness. The back is symmetrical on inspection without obvious abnormality. There is no CVA tenderness to palpation. No joint edema. LOWER EXTREMITIES: Calves are equal size bilaterally and non-tender. No edema. No discoloration. NEURO: Normal sensorium. No sensory or motor deficits noted. DTRs with hyper- reflexia. No clonus. SKIN: Warm, no rash or jaundice noted. Medical Decision & Procedures ER Provider Diagnostic Interpretation: Radiology results as stated below per my review and radiologist interpretation: CHEST ONE VIEW PORTABLE CLINICAL HISTORY: 22 years-old Male presenting with ABDOMINAL PAIN/GI. TECHNIQUE: Portable upright AP view of the chest was obtained. COMPARISON: 03/22/2018. FINDINGS: Cardiomediastinal silhouette normal. Lungs and pleural spaces clear. Osseous structures normal. Upper abdomen normal. IMPRESSION: 1. No acute cardiopulmonary disease. The previously noted density over the right upper lung was presumably artifactual as no focal infiltrate is now apparent. Electronically signed by: Jony Finch M.D. 03/23/2018 1:53 PM Laboratory Results 03/23/18 13:30 Red Blood Count 5.45, Mean Corpuscular Volume 86.1, Mean Corpuscular Hemoglobin 30.8, Mean Corpuscular Hemoglobin Concent 35.8, Mean Platelet Volume 9.6, Neutrophils (%) (Auto) 80.8, Lymphocytes (%) (Auto) 12.4, Monocytes (%) (Auto) 5.7, Eosinophils (%) (Auto) 0.4, Basophils (%) (Auto) 0.4, Neutrophils # (Auto) 12.55, Lymphocytes # (Auto) 1.93, Monocytes # (Auto) 0.88, Eosinophils # (Auto) 0.06, Basophils # (Auto) 0.06 03/23/18 13:30 Test 03/23/18 13:30 White Blood Count 15.52 K/uL (4.8-10.8) Red Blood Count 5.45 M/uL (4.7-6.1) Hemoglobin 16.8 g/dL (14.0-18.0) Hematocrit 46.9 % (42-52) Mean Corpuscular Volume 86.1 fL (80-100) Mean Corpuscular Hemoglobin 30.8 pg (25-34) Mean Corpuscular Hemoglobin Concent 35.8 g/dl (32-36) Platelet Count 400 K/uL (130-400) Mean Platelet Volume 9.6 fL (7.4-10.4) Neutrophils (%) (Auto) 80.8 % Lymphocytes (%) (Auto) 12.4 % Monocytes (%) (Auto) 5.7 % Eosinophils (%) (Auto) 0.4 % Basophils (%) (Auto) 0.4 % Neutrophils # (Auto) 12.55 K/uL (1.4-6.5) Lymphocytes # (Auto) 1.93 K/uL (1.2-3.4) Monocytes # (Auto) 0.88 K/uL (0.11-0.59) Eosinophils # (Auto) 0.06 K/uL (0-0.5) Basophils # (Auto) 0.06 K/uL (0-0.2) RDW Standard Deviation 40.1 fL (36.4-46.3) RDW Coefficient of Variation 12.7 % (11.5-14.5) Immature Granulocyte % (Auto) 0.3 % Immature Granulocyte # (Auto) 0.04 K/uL (0.00-0.02) Anion Gap 14.0 mmol/L (3-11) Est Creatinine Clear Calc Drug Dose 106.3 ml/min Estimated GFR () 102.7 Estimated GFR (Non- 88.6 BUN/Creatinine Ratio 10.0 (10-20) Calcium Level 9.8 mg/dl (8.5-10.1) Magnesium Level 1.9 mg/dl (1.8-2.4) Total Bilirubin 0.6 mg/dl (0.2-1) Direct Bilirubin 0.2 mg/dl (0-0.2) Aspartate Amino Transf (AST/SGOT) 87 U/L (15-37) Alanine Aminotransferase (ALT/SGPT) 43 U/L (12-78) Alkaline Phosphatase 104 U/L (45-117) Total Creatine Kinase 2306 U/L (39-308) Total Protein 8.3 gm/dl (6.4-8.2) Albumin 4.3 gm/dl (3.4-5.0) Lipase 91 U/L (73-393) Laboratory results reviewed by me Medications Administered Medications (Trade) Dose Ordered Sig/Criss Route Start Time Stop Time Status Last Admin Dose Admin Sodium Chloride 2,000 ml @ 999 mls/hr Q2H1M STAT IV 03/23/18 13:35 03/23/18 15:35 DC 03/23/18 13:48 999 MLS/HR Benztropine Mesylate (Cogentin Inj) 2 mg NOW STAT IV 03/23/18 13:35 03/23/18 13:38 DC 03/23/18 13:48 2 MG Lorazepam (Ativan Inj) 1 mg NOW STAT IV 03/23/18 13:35 03/23/18 13:38 DC 03/23/18 13:48 1 MG Sodium Chloride 1,000 ml @ 999 mls/hr Q1H1M STAT IV 03/23/18 15:28 03/23/18 16:28 DC 03/23/18 15:35 999 MLS/HR ECG Per My Interpretation Indication: diaphoresis Rate (beats per minute): 118 Rhythm: sinus tachycardia Findings: no acute ischemic change, other (Normal axis) ED Course 1328: The patient was evaluated in room C7. A complete history and physical exam was performed. 1433: I reassessed the patient. He states that he is feeling better. 1620: I reevaluated the patient. Discussed results and discharge instructions. He verbalized understanding and agreement. The patient is ready for discharge. Medical Decision I reviewed the patient's past medical history, medications, and the nursing notes as described above. DDX: dystonic reaction, torticollis, dehydration, serotonin syndrome, rhabdomyolysis, among others. The patient is a 22 y/o gentleman who presents to the emergency department with neck and generalized body spasms since this morning in the setting of being admitted to the hospital for etoh intoxication requiring sedation with Haldol for agitation on Tuesday evening per HPI. On arrival the patient is uncomfortable but in NAD, AF, tachycardic to 140s with VS otherwise stable. On exam the patient has neck spasm and stiffness as well as palpable spasm of arms and legs with hyperreflexia. No clonus. Exam c/w acute dystonic reaction. Patient given IVF, cogentin, ativan with complete resolution of sx and HR improved to 80s. Labs with elevated CPK 2000s c/w patient's dystonic reaction. WBC 15, nonspecific and likely acute phase from dystonic reaction. Cr. 1.17 and GFR 88. Patient given total of 3 L IVF and subsequently well appearing, neck supple. I recommended to patient to stay for repeat CPK however he reports that he feels much improved and was planning to drive home to [place] today. Given the patient was significantly improved and inciting dystonic process resolved with tx, discharge with plan for prompt outpatient lab check is reasonable. Patient counseled on maintaining hydration and avoiding etoh use. Findings and plan for follow-up reviewed with patient. Patient agreeable and d/c 'd per discharge instructions. Medication Reconcilliation Current Medication List: was personally reviewed by me Blood Pressure Screening Patient's blood pressure: Elevated blood pressure Blood pressure disposition: Elevated BP felt to be situational Impression Primary Impression: Drug-induced acute dystonia Additional Impression: Rhabdomyolysis Scribe Attestation The scribe's documentation has been prepared under my direction and personally reviewed by me in its entirety. I confirm that the note above accurately reflects all work, treatment, procedures, and medical decision making performed by me. Departure Information Dispostion Home / Self-Care Prescriptions Benztropine Mesylate (Cogentin) 1 Mg Tab 1 MG PO BID for 7 Days, #14 TAB Prov: Erwin Cabrera M.D. 03/23/18 Referrals No Doctor, Assigned (PCP) Forms HOME CARE DOCUMENTATION FORM, IMPORTANT VISIT INFORMATION, WORK / SCHOOL INSTRUCTIONS Patient Instructions ED Dehydration, ED Drug React Dystonic Adverse, ED Rhabdomyolysis, My [facility] Additional Instructions Please follow up with your primary care physician in the next 1-3 days for re- evaluation and to repeat your kidney function and CPK (creatinine phosphokinase ) level to ensure resolution. You likely had a dystonic reaction to medication (Haldol) you were given on your last presentation to the hospital for agitation. Otherwise, your exam, EKG, chest xray, and lab results did not show signs of an emergent condition at this time. Cogentin as directed to help prevent recurrence. Make sure to drink plenty of fluids to ensure hydration and help with CPK clearance/resolution. You should refrain from all alcohol until reevaluated by your doctor. Return to the emergency department for worsening symptoms as described in the accompanying instructions. Problem Qualifiers
[2018-03-23 13:51] LABS: BASO % 0.4 %; BASO ABS # 0.06 K/uL (0-0.2); EOS % 0.4 %; EOS ABS # 0.06 K/uL (0-0.5); HEMATOCRIT 46.9 % (42-52); HEMOGLOBIN 16.8 g/dL (14.0-18.0); IG# 0.04 K/uL (0.00-0.02); LYMPH % 12.4 %; LYMPH ABS # 1.93 K/uL (1.2-3.4); MEAN CELL VOLUME 86.1 fL (80-100); MEAN CORPUSCULAR HEMOGLOBIN 30.8 pg (25-34); MEAN CORPUSCULAR HGB CONC 35.8 g/dl (32-36); MEAN PLATELET VOLUME 9.6 fL (7.4-10.4); MONO % 5.7 %; MONO ABS # 0.88 K/uL (0.11-0.59); NEUT % 80.8 %; NEUT ABS # 12.55 K/uL (1.4-6.5); PLATELET COUNT 400 K/uL (130-400); RED CELL DISTRIBUTION WIDTH CV 12.7 % (11.5-14.5); RED CELL DISTRIBUTION WIDTH SD 40.1 fL (36.4-46.3); WHITE BLOOD COUNT 15.52 K/uL (4.8-10.8)
--- NOTE | 2018-03-23 13:54 | DIAGNOSTIC IMAGING REPORT ---
CHEST ONE VIEW PORTABLE CLINICAL HISTORY: 22 years-old Male presenting with ABDOMINAL PAIN/GI. TECHNIQUE: Portable upright AP view of the chest was obtained. COMPARISON: 03/22/2018. FINDINGS: Cardiomediastinal silhouette normal. Lungs and pleural spaces clear. Osseous structures normal. Upper abdomen normal. IMPRESSION: 1. No acute cardiopulmonary disease. The previously noted density over the right upper lung was presumably artifactual as no focal infiltrate is now apparent. Electronically signed by: Jony Finch M.D. 03/23/2018 1:53 PM Dictated Date/Time: 03/23/2018 1:51 PM
[2018-03-23 14:14] LABS: ALBUMIN 4.3 gm/dl (3.4-5.0); CALCIUM 9.8 mg/dl (8.5-10.1); CREATININE 1.17 mg/dl (0.60-1.40); POTASSIUM 4.2 mmol/L (3.5-5.1)
[2018-03-23 14:29] LABS: TOTAL PROTEIN 8.3 gm/dl (6.4-8.2)
[2018-03-23] MEDS ORDERED: SODIUM CHLORIDE 0.9% 1000ML 1,000 ML IV STA (15:28)
[2018-03-23] MEDS ORDERED: BENZ-89 PO (15:56)
[2018-03-23 16:18] VITALS: BP 142/93; PULSE 74; O2SAT 99
== END 2018-03-23 16:18 | disposition home or self-care (01) ==
LOC: C.EDB 13:11 → C.EDC 16:18
DX: G24.02 Drug induced acute dystonia (principal); M62.82 Rhabdomyolysis; Z88.0 Allergy status to penicillin